=== PATIENT | female | born 1990 | race Caucasian/White ===

== ENCOUNTER 2016-09-01 21:54 | Emergency (ER) | payer OTHER | END 2016-09-02 00:09 | disposition home or self-care (01) | LOC: FER 21:54 | DX: J18.9 Pneumonia, unspecified organism (principal); J03.90 Acute tonsillitis, unspecified; F17.200 Nicotine dependence, unspecified, uncomplicated | CPT/HCPCS: 71020; 87450 ==

== ENCOUNTER 2020-09-14 15:37 | Emergency (ER) | payer OTHER ==
[~2020-09-14 15:37] MED LIST: TRAMADOL HCL50 MG PO
[2020-09-14 17:49] LABS: BASOPHIL 0.5 % (0-2); EOSINOPHIL 1.2 % (0-5); HCT 40.1 % (37.0-47.0); HGB 13.4 g/dl (12.5-16.0); LYMPHOCYTE 37.5 % (15-48); MCH 29.4 pg (25.0-31.0); MCHC 33.4 g/dL (32.0-36.0); MCV 87.9 fL (78.0-100.0); MONOCYTE 5.3 % (0-12); MPV 9.8 fL (6.0-9.5); NEUTROPHIL 55.2 % (41-80); NRBC 0; PLT 351 K/uL (150-400); RBC 4.56 M/uL (4.20-5.40); RDW 13.1 % (11.5-14.0); WBC 7.6 K/uL (4.0-10.5)
[2020-09-14 18:07] LABS: CREATININE 0.92 mg/dL (0.51-0.95); POTASSIUM 3.9 mmol/L (3.5-5.1)
[2020-09-14] MEDS ORDERED: FIORICET1 EACH PO (19:00)
== END 2020-09-14 19:45 | disposition home or self-care (01) ==
LOC: FER 15:37
PROVIDERS: Nurse Practitioner Family
DX: S06.0X9A Concussion with loss of consciousness of unspecified duration, initial encounter (principal); W17.89XA Other fall from one level to another, initial encounter
CPT/HCPCS: 36415; 70450; 80048; 85025; J1100; J1200; J1885; J2405; J7030

== ENCOUNTER 2021-01-11 09:55 | Emergency (ER) | payer OTHER ==
[~2021-01-11 09:55] MED LIST changes: +FIORICET1 EACH PO
[2021-01-11 10:41] LABS: BILIRUBIN NEGATIVE (NEGATIVE); BLOOD 1+ Ery/uL (NEGATIVE); CLARITY CLEAR (CLEAR); COLOR YELLOW (YELLOW); GLUCOSE (U) NORMAL (NORMAL); LEUKOCYTES NEGATIVE Leu/uL (NEGATIVE); NITRITE NEGATIVE (NEGATIVE); PROTEIN NEGATIVE (NEGATIVE); UROBILINOGEN 0.2 mg/dL (0.2-1.0); pH 7.5 (5.0-9.0)
[2021-01-11 10:49] LABS: BASOPHIL 0.5 % (0-2); EOSINOPHIL 1.2 % (0-5); HCT 37.6 % (37.0-47.0); HGB 12.5 g/dl (12.5-16.0); LYMPHOCYTE 36.2 % (15-48); MCH 28.9 pg (25.0-31.0); MCHC 33.2 g/dL (32.0-36.0); MONOCYTE 6.3 % (0-12); MPV 9.5 fL (6.0-9.5); NEUTROPHIL 55.6 % (41-80); NRBC 0; PLT 331 K/uL (150-400); RBC 4.32 M/uL (4.20-5.40); RDW 12.9 % (11.5-14.0); WBC 5.9 K/uL (4.0-10.5)
[2021-01-11 11:04] LABS: BACTERIA TRACE; SQUAMOUS EPITHELIAL CELLS RARE
[2021-01-11 11:08] LABS: ALBUMIN 3.8 g/dL (3.4-5.0); BILIRUBIN - TOTAL 0.3 mg/dL (0.2-1.0); BUN/CREAT RATIO (CALC) 13.5 RATIO; CREATININE 0.74 mg/dL (0.51-0.95); POTASSIUM 3.8 mmol/L (3.5-5.1); TOTAL PROTEIN 7.8 g/dL (6.4-8.2)
[2021-01-11] MEDS ORDERED: PROVERA10 MG PO (12:59)
== END 2021-01-11 13:31 | disposition home or self-care (01) ==
LOC: FER 09:55
PROVIDERS: Internal Medicine
DX: N93.9 Abnormal uterine and vaginal bleeding, unspecified (principal); N94.6 Dysmenorrhea, unspecified; F17.210 Nicotine dependence, cigarettes, uncomplicated
CPT/HCPCS: 36415; 76830; 80053; 81001; 84702; 85025; J2270; J2405

== ENCOUNTER 2021-07-13 13:02 | Emergency (ER) | payer OTHER ==
[~2021-07-13 13:02] MED LIST changes: +PROVERA10 MG PO
[2021-07-13 13:55] LABS: BILIRUBIN NEGATIVE (NEGATIVE); BLOOD NEGATIVE Ery/uL (NEGATIVE); CLARITY CLEAR (CLEAR); COLOR YELLOW (YELLOW); GLUCOSE (U) NORMAL (NORMAL); LEUKOCYTES NEGATIVE Leu/uL (NEGATIVE); NITRITE NEGATIVE (NEGATIVE); PROTEIN NEGATIVE (NEGATIVE); SPECIFIC GRAVITY 1.015 (1.001-1.030); pH 8.5 (5.0-9.0)
[2021-07-13 13:56] LABS: SQUAMOUS EPITHELIAL CELLS RARE; URINARY WBC RARE
[2021-07-13 14:34] LABS: BASOPHIL 0.4 % (0-2); EOSINOPHIL 0.6 % (0-5); HCT 35.2 % (37.0-47.0); HGB 11.8 g/dl (12.5-16.0); LYMPHOCYTE 32.4 % (15-48); MCH 28.4 pg (25.0-31.0); MCHC 33.5 g/dL (32.0-36.0); MCV 84.6 fL (78.0-100.0); MONOCYTE 7.1 % (0-12); MPV 9.7 fL (6.0-9.5); NEUTROPHIL 59.2 % (41-80); NRBC 0; PLT 364 K/uL (150-400); RBC 4.16 M/uL (4.20-5.40); RDW 12.4 % (11.5-14.0); WBC 7.2 K/uL (4.0-10.5)
[2021-07-13 14:37] LABS: ALBUMIN 3.7 g/dL (3.4-5.0); BILIRUBIN - TOTAL 0.3 mg/dL (0.2-1.0); BUN/CREAT RATIO (CALC) 11.8 RATIO; CREATININE 0.85 mg/dL (0.51-0.95); GLOBULIN (CALCULATION) 4.1 g/dL; POTASSIUM 3.4 mmol/L (3.5-5.1); TOTAL PROTEIN 7.8 g/dL (6.4-8.2)
[2021-07-13] MEDS ORDERED: NAPROSYN250 MG PO (15:15)
[2021-07-13] MEDS ORDERED: ONDANSETRON ODT4 MG PO (15:21)
== END 2021-07-13 15:50 | disposition home health service (06) ==
LOC: FER 13:02
PROVIDERS: Physician Assistant
DX: R10.9 Unspecified abdominal pain (principal); R11.0 Nausea
CPT/HCPCS: 36415; 80053; 81001; 85025; J1885; J2405; J7030

== ENCOUNTER 2021-09-01 00:31 | Emergency (ER) | payer OTHER ==
[~2021-09-01 00:31] MED LIST changes: +NAPROSYN250 MG PO; +ONDANSETRON ODT4 MG PO
[2021-09-01 02:38] LABS: HCT 38.6 % (37.0-47.0); HGB 12.6 g/dl (12.5-16.0); MCH 27.8 pg (25.0-31.0); MCHC 32.6 g/dL (32.0-36.0); RBC 4.54 M/uL (4.20-5.40); WBC 7.3 K/uL (4.0-10.5)
[2021-09-01 02:39] LABS: MPV 9.3 fL (6.0-9.5); NEUTROPHIL 41.4 % (41-80); PLT 424 K/uL (150-400); RDW 12.8 % (11.5-14.0)
[2021-09-01 02:40] LABS: BASOPHIL 0.5 % (0-2); EOSINOPHIL 1.4 % (0-5); MONOCYTE 50.4 % (0-12); NRBC 0
[2021-09-01 02:41] LABS: CREATININE 0.79 mg/dL (0.51-0.95); POTASSIUM 3.3 mmol/L (3.5-5.1)
[2021-09-01] MEDS ORDERED: AMOXICILLIN500 MG PO (08:22)
== END 2021-09-01 08:55 | disposition home or self-care (01) ==
LOC: FER 00:31
PROVIDERS: Internal Medicine
DX: T78.3XXA Angioneurotic edema, initial encounter (principal); J03.90 Acute tonsillitis, unspecified
CPT/HCPCS: 36415; 70491; 80048; 84145; 85025; J1100; J1170; J2405; Q9967